=== PATIENT | female | born 1995 | race African-American/Black ===

== ENCOUNTER 2023-07-20 13:59 | Emergency (ER) | payer SELFPAY ==
[~2023-07-20] VITALS: Ht 172.7 cm; Wt 80.0 kg
[2023-07-20 14:01] VITALS: O2SAT 99
[2023-07-20] MEDS: ACETAMINOPHEN 325MG TABLET PO ONE (16:43)
[2023-07-20] MEDS: KETOROLAC 60MG/2ML VIAL IM ONE (17:06)
[2023-07-20 17:37] VITALS: BP 128/69; PULSE 75; RESP 18; TEMP 98.5
== END 2023-07-20 17:39 | disposition home or self-care (01) ==
LOC: ER 13:59
DX: S00.83XA Contusion of other part of head, initial encounter (principal); X58.XXXA Exposure to other specified factors, initial encounter; Y93.89 Activity, other specified; Y92.89 Other specified places as the place of occurrence of the external cause; Y99.8 Other external cause status
CPT/HCPCS: 96372; 99283; J1885; Z7610 ×2